=== PATIENT | female | born 1930 | race Caucasian/White ===

== ENCOUNTER 2019-10-30 19:07 | Emergency (ER) | payer MEDICARE, OTHER ==
[~2019-10-30] VITALS: Ht 157.5 cm; Wt 54.0 kg
[~2019-10-30 19:07] MED LIST: ASPI-1158 MT; CELE-84 PO; CLOP75TA4 MT; DICL100G31 TP; MEMA1CAP3 PO; MEMA28CA PO; NYST15CR2 TP; TEMA7.5C6 MT; TRAZ-251 MT; VALS1TAB72 MT; tylenol
[2019-10-30 21:30] VITALS: BP 104/54
== END 2019-10-30 23:04 | disposition home or self-care (01) ==
LOC: ER 19:07
DX: F03.90 Unspecified dementia, unspecified severity, without behavioral disturbance, psychotic disturbance, mood disturbance, and anxiety (principal); W18.39XA Other fall on same level, initial encounter; Y93.89 Activity, other specified; Y92.89 Other specified places as the place of occurrence of the external cause; Y99.8 Other external cause status; I10 Essential (primary) hypertension; Z79.899 Other long term (current) drug therapy
CPT/HCPCS: 73521; 73562; 99284